=== PATIENT | male | born 1970 | race African-American/Black ===

== ENCOUNTER 2018-09-07 09:20 | Emergency (ER) | payer SELFPAY ==
[~2018-09-07] VITALS: Ht 175.3 cm; Wt 98.2 kg
[~2018-09-07 09:20] MED LIST: CLARITIN10 M2 PO; OMEPRAZOLE20 M2 PO
[2018-09-07] MEDS ORDERED: ALL DAY10 MG PO (10:20)
[2018-09-07 10:34] VITALS: BP 132/86
== END 2018-09-07 10:40 | disposition home or self-care (01) | DRG 153 ==
LOC: ED 09:20
DX: J30.9 Allergic rhinitis, unspecified (principal); R05 Cough; J34.89 Other specified disorders of nose and nasal sinuses; R09.81 Nasal congestion

== ENCOUNTER 2019-04-29 10:23 | Emergency (ER) | payer SELFPAY ==
[~2019-04-29] VITALS: Ht 175.3 cm; Wt 95.0 kg
[~2019-04-29 10:23] MED LIST changes: +ALL DAY10 MG PO
[2019-04-29] MEDS ORDERED: KEFLEX500 MG PO (10:46)
[2019-04-29 11:05] VITALS: BP 122/60
== END 2019-04-29 11:05 | disposition home or self-care (01) | DRG 607 ==
LOC: ED 10:23
DX: L73.9 Follicular disorder, unspecified (principal)

== ENCOUNTER 2019-05-19 19:55 | Emergency (ER) | payer SELFPAY ==
[~2019-05-19] VITALS: Ht 175.3 cm; Wt 86.0 kg
[~2019-05-19 19:55] MED LIST changes: +KEFLEX500 MG PO
[2019-05-19 20:27] VITALS: BP 149/106
[2019-05-19] MEDS ORDERED: AMOXICILLIN500 MG PO (22:05)
[2019-05-19] MEDS ORDERED: CODEINE/GUAIFEN1 SOL PO (22:06)
== END 2019-05-19 22:15 | disposition home or self-care (01) | DRG 153 ==
LOC: ED 19:55
DX: J03.90 Acute tonsillitis, unspecified (principal); J06.9 Acute upper respiratory infection, unspecified

== ENCOUNTER 2019-12-20 19:37 | Emergency (ER) | payer SELFPAY ==
[~2019-12-20] VITALS: Ht 175.3 cm; Wt 100.0 kg
[~2019-12-20 19:37] MED LIST changes: +AMOXICILLIN500 MG PO; +CODEINE/GUAIFEN1 SOL PO
[2019-12-20] MEDS ORDERED: VOLTAREN - GENE75 MG PO (21:08)
[2019-12-20] MEDS ORDERED: KEFLEX500 M1 PO (21:08)
[2019-12-20 21:14] VITALS: BP 128/77
== END 2019-12-20 21:19 | disposition home or self-care (01) | DRG 563 ==
LOC: ED 19:37
DX: S39.012A Strain of muscle, fascia and tendon of lower back, initial encounter (principal); L03.011 Cellulitis of right finger; X50.0XXA Overexertion from strenuous movement or load, initial encounter

== ENCOUNTER 2020-09-26 | Emergency (ER) | payer SELFPAY ==
[~2020-09-26] MED LIST changes: +KEFLEX500 M1 PO; +VOLTAREN - GENE75 MG PO
[2020-09-26] MEDS ORDERED: VOLTAREN - GENE75 MG PO (19:55)
[2020-09-26] MEDS ORDERED: AMOXICILLIN500 MG PO (19:55)
== END 2020-09-26 20:20 | disposition home or self-care (01) | DRG 159 ==
DX: K02.9 Dental caries, unspecified (principal)

== ENCOUNTER 2021-06-03 19:40 | Emergency (ER) | payer SELFPAY ==
[~2021-06-03] VITALS: Ht 175.3 cm; Wt 73.0 kg
[2021-06-03] MEDS ORDERED: FAMCICLOVIR500 MG PO (20:21)
[2021-06-03 20:35] VITALS: BP 160/98
== END 2021-06-03 20:40 | disposition home or self-care (01) | DRG 728 ==
LOC: ED 19:40
DX: A60.01 Herpesviral infection of penis (principal)

== ENCOUNTER 2021-11-22 10:12 | Emergency (ER) | payer SELFPAY ==
[~2021-11-22] VITALS: Ht 175.3 cm; Wt 87.0 kg
[~2021-11-22 10:12] MED LIST changes: +FAMCICLOVIR500 MG PO
[2021-11-22 10:48] VITALS: BP 143/107
[2021-11-22 11:00] VITALS: BP 149/97
[2021-11-22] MEDS ORDERED: DOXYCYCLINE100 MG PO (11:18)
[2021-11-22 11:29] VITALS: BP 149/97
== END 2021-11-22 11:41 | disposition home or self-care (01) | DRG 607 ==
LOC: ED 10:12
DX: L73.9 Follicular disorder, unspecified (principal)

== ENCOUNTER 2023-07-04 11:05 | Emergency (ER) | payer OTHER ==
[~2023-07-04] VITALS: Ht 175.3 cm; Wt 87.0 kg
[~2023-07-04 11:05] MED LIST changes: +DOXYCYCLINE100 MG PO
[2023-07-04 12:11] LABS: URINE BILIRUBIN - DIPSTICK Negative (NEGATIVE); URINE BLOOD DIPSTICK Trace-intact (NEGATIVE); URINE COLOR Yellow; URINE GLUCOSE - DIPSTICK >=1000 mg/dL (NEGATIVE); URINE KETONE Trace mg/dL (NEGATIVE); URINE LEUK ESTERASE Negative (NEGATIVE); URINE NITRITE - DIPSTICK Negative (Negative); URINE PROTEIN - DIPSTICK Negative (NEG-TRACE); URINE UROBILINOGEN - DIPSTICK 0.2 E.U./dL (0.2)
[2023-07-04] MEDS ORDERED: VIBRAMYCIN100 M2 PO (13:04)
[2023-07-04] MEDS ORDERED: DIFLUCAN150 MG PO (13:04)
[2023-07-04 13:49] VITALS: BP 137/98
== END 2023-07-04 13:54 | disposition home or self-care (01) | DRG 728 ==
LOC: ED 11:05
PROVIDERS: Emergency Medicine
DX: A64 Unspecified sexually transmitted disease (principal)